=== PATIENT | male | born 1985 | race Caucasian/White ===

== ENCOUNTER → 2018-02-08 | Outpatient (CLI) | payer BC ==
[~2018-02-08] MED LIST: GADOBUTROL 10 MMOL/10 ML (GADAVIST) VIAL IV ONE
--- NOTE | 2018-02-08 10:24 | Diagnostic Imaging Report ---
PROCEDURE: MRI lumbar spine with and without contrast. TECHNIQUE: Multiplanar, multisequence MRI of the lumbar spine was performed with and without contrast. INDICATION: Low back pain with bilateral leg numbness. Patient had prior lumbar spine surgery in 2004. COMPARISON: No prior studies are available for comparison. FINDINGS: There is some straightening of the normal lumbar lordotic curvature. The vertebral body heights are well-maintained. No acute compression fracture or geographic marrow lesion is seen. There is fairly normal height and signal intensity to the lumbar intervertebral discs. Conus appears unremarkable at the T12-L1 level. There appear to be postsurgical changes at the L4-L5 level of left tristan-laminectomy. Trace fluid at the tip of the spinous process of L4 is seen. L1-L2: Central canal is widely patent. Neural foramina are patent. L2-L3: Unremarkable. L3-L4: There is some ligamentous thickening and facet changes creating slight trefoil configuration of the thecal sac. AP dimensions remain within normal limits. No neuroforaminal stenosis is seen. L4-L5: There is mild annular bulging with flattening of the ventral thecal sac. AP dimensions of the canal are within normal limits. There appears to be very mild neuroforaminal narrowing bilaterally as well as mild bilateral lateral recess narrowing. L5-S1: Central canal is widely patent. No neuroforaminal stenosis is seen. Postcontrast imaging is unremarkable. No abnormal enhancement is identified. The paraspinous tissues are unremarkable. IMPRESSION: Postsurgical changes left hemilaminectomy lower lumbar spine, as described. No complicating features are identified. There is very mild bilateral neuroforaminal and lateral recess narrowing at L4-L5 level due to annular bulging. No central canal stenosis is detected. Dictated by: Dictated on workstation # [id number]
== END ==
LOC: RAD 08:39
PROVIDERS: ATTEND Nurse Practitioner Family
DX: M48.061 Spinal stenosis, lumbar region without neurogenic claudication (principal); M51.26 Other intervertebral disc displacement, lumbar region; Z98.890 Other specified postprocedural states
CPT/HCPCS: 72158

== ENCOUNTER 2018-05-07 08:30 | Outpatient (RCR) | payer BC | END 2018-05-08 13:24 | disposition home or self-care (01) | PROVIDERS: ATTEND Nurse Practitioner Family | DX: M54.5 Low back pain (principal) ==

== ENCOUNTER 2021-05-07 21:43 | Emergency (ER) | payer SELFPAY ==
[~2021-05-07] VITALS: Ht 170.2 cm; Wt 79.4 kg
[2021-05-07 22:05] LABS: BASOPHILS % (AUTO) 0 % (0-10); EOSINOPHILS # (AUTO) 0.2 10^3/uL (0.0-0.3); EOSINOPHILS % (AUTO) 2 % (0-10); HEMATOCRIT 40 % (40-54); LYMPHOCYTES # (AUTO) 2.7 10^3/uL (1.0-4.0); LYMPHOCYTES % (AUTO) 33 % (12-44); MEAN CORPUSCULAR HEMOGLOBIN 30 pg (25-34); MEAN CORPUSCULAR HGB CONC 35 g/dL (32-36); MEAN CORPUSCULAR VOLUME 87 fL (80-99); MEAN PLATELET VOLUME 9.8 fL (9.0-12.2); MONOCYTES % (AUTO) 12 % (0-12); NEUTROPHILS # (AUTO) 4.2 10^3/uL (1.8-7.8); NEUTROPHILS % (AUTO) 52 % (42-75); PLATELET COUNT 211 10^3/uL (130-400)
--- NOTE | 2021-05-07 22:12 | ED Neurological Problem ---
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 ALSO STATES THAT HE NOTICED THE RIGHT SIDE OF HIS FACE TO FEEL TINGLY, MOSTLY WHEN HE YAWNS, SINCE AROUND 10 AM TODAY ALSO NOTED OCCASIONAL CRAMPING IN MEDIAL ASPECT OF RIGHT CALF TODAY HAS HAD A SLIGHT HEADACHE ALL DAY TODAY--IN TEMPLES AND BACK OF HEAD HAS NOT TAKEN ANYTHING FOR PAIN TODAY, BUT STATES HEAD DOES NOT HURT NOW NO VISION CHANGES NO DIFFICULTY TALKING OR SWALLOWING NO NECK OR BACK PAIN NO CHEST PAIN NO SHORTNESS OF BREATH NO PALPITATIONS NO DIZZINESS NO SYNCOPE NO NAUSEA/VOMITING/DIARRHEA NO FEVER OR RECENT ILLNESS NO URI/SINUS/ALLERGY SYMPTOMS HAS NOT RECEIVED COVID-19 VACCINE DENIES ANY KNOWN SICK CONTACTS SYMPTOMS ARE NOT ANY DIFFERENT TONIGHT HAS NOT SOUGHT CARE UNTIL TONIGHT NO HISTORY OF SIMILAR PT STATES HE WAS DX WITH HTN LAST YEAR, AND WAS PLACED ON LISINOPRIL PT STATES HE HAS NOT TAKEN IT FOR THE LAST 3 MONTHS BECAUSE HIS BLOOD PRESSURE WAS NORMAL PCP: [facility] Allergies and Home Medications Allergies Coded Allergies: No Known Drug Allergies (Unverified , 02/08/18) Home Medications Lisinopril 10 Mg Tablet, 10 MG PO DAILY Prescribed by: YESI VILLEGAS on 05/07/21 4422 Patient Home Medication List Home Medication List Reviewed: Yes Review of Systems Review of Systems Constitutional: no symptoms reported Eyes: No Symptoms Reported Ears, Nose, Mouth, Throat: no symptoms reported Respiratory: no symptoms reported Cardiovascular: no symptoms reported Gastrointestinal: no symptoms reported Genitourinary: no symptoms reported Musculoskeletal: see HPI Skin: no symptoms reported Psychiatric/Neurological: See HPI; Denies Cognitive Dysfunction; Headache, Numbness, Tingling Endocrine: No Symptoms Reported Hematologic/Lymphatic: No Symptoms Reported Past Umrjarp-Eguzoe-Elgyun Hx Patient Social History Tobacco Use?: No Smoking Status: Never a Smoker Smokeless Tobacco Frequency: Never a User Substance use?: No Alcohol Use?: Yes Alcohol Frequency: Couple times a week Pt feels they are or have been: No Immunizations Up To Date COVID19 Vaccine Toter: NO VAX Past Medical History Surgery/Hospitalization HX: SURGERY FOR HERNIATED DISK L5 Surgeries: Yes Orthopedic Respiratory: No Cardiac: Yes Hypertension Neurological: No Genitourinary: No Gastrointestinal: No Musculoskeletal: Yes (SURGERY L5 HERNIATED DISC) Degenerate Disk Disease, Chronic Back Pain Endocrine: No HEENT: No Cancer: No Psychosocial: No Integumentary: No Blood Disorders: No Physical Exam Vital Signs Vital Signs - First Documented 05/07/21 21:48 Pulse 82 Resp 16 B/P (MAP) 190/117 (141) Pulse Ox 99 O2 Delivery Room Air Capillary Refill : Height, Weight, BMI Height: '" Weight: lbs. oz. kg; BMI Method: General Appearance: WD/WN, no apparent distress HEENT: PERRL/EOMI, normal ENT inspection, TMs normal, pharynx normal Neck: non-tender, full range of motion, supple, normal inspection Respiratory: normal breath sounds, no respiratory distress, no accessory muscle use Cardiovascular: normal peripheral pulses, regular rate, rhythm, no edema, no JVD, no murmur Gastrointestinal: normal bowel sounds, non tender, soft, no organomegaly Back: normal inspection, no CVA tenderness, no vertebral tenderness Extremities: normal range of motion, non-tender, normal inspection, no pedal edema, no calf tenderness, normal capillary refill 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 HAS SENSATION BUT IT DOES NOT FEEL THE SAME OTHER THUMB. RIGHT SIDE OF FACE HAS SENSATION, BUT STATES IT DOES NOT FEEL THE SAME LEFT SIDE. NO FACIAL DROOP. ) Crainal Nerves: normal hearing, normal speech, PERRL Coordination/Gait: normal finger to nose, normal gait, negative Romberg's sign, other (NORMAL HEEL TO JASSO) Motor/Sensory: no motor deficit, no sensory deficit, no pronator drift Skin: normal color, warm/dry Stroke NIH Stroke Scale Assessment Select: Initial Level of Consciousness: 0=Alert (0), Level of Consciousness- Questions: 0=Answers both month/age (0), LOC Commands: 0=Performs both tasks (0), Gaze: Normal (0), Visual Funez: 0=No visual loss (0), Facial Movement (Facial Paresis): 0=Normal symmetrical mnt (0), Motor Function-Arms Right: 0=No drift (0), Motor Function-Arms Left: 0=No drift (0), Motor Function-Legs Right: 0=No drift (0), Motor Function-Legs Left: 0=No drift (0), Limb Ataxia: 0=Absent (0), Sensory: 1=Mild to Moderate loss (1), Best Language: 0=No aphasia (0), Dysarthria: 0=Normal (0), Extinction & Inattention: 0=No abnormality (0), Total: 1 Stroke Thrombolytic Exclusion Age 18 or Over: Yes Acute intenal hemorrhage: No History of CVA: No Uncontrolled Coagulation Defec: No Intracranial Hemorrhage: No Severe Hypertension: Yes GI or Bleed: No Subarachnoid Hemorrhage: No Intracranial Neoplasm/Aneurysm: No Oral Anticoagulants: No Surgery or Trauma: No Puncture of Non-Compressible V: No Recent CPR: No Diabetic Hemorrhagic Retinopat: No Organ Biopsy: No Recent Obstetric Delivery: No Glucose: No Significant Hepatic Dysfunctio: No NIH Stoke Scale >22: No Bacterial Endocarditis: No Pericarditis: No Improving Symptoms: No Platelets: No TPA Contraindication: No IV - TPa Received IV - TPa Procedure Performed?: No (NIH 1, ONSET > 12 HOURS) Progress/Results/Core Measures Results/Orders Lab Results Laboratory Tests Test 05/07/21 21:58 05/07/21 22:37 Range/Units White Blood Count 8.0 4.3-11.0 10^3/uL Red Blood Count 4.60 4.30-5.52 10^6/uL Hemoglobin 14.0 13.3-17.7 g/dL Hematocrit 40 40-54 % Mean Corpuscular Volume 87 80-99 fL Mean Corpuscular Hemoglobin 30 25-34 pg Mean Corpuscular Hemoglobin Concent 35 32-36 g/dL Red Cell Distribution Width 12.9 10.0-14.5 % Platelet Count 211 130-400 10^3/uL Mean Platelet Volume 9.8 9.0-12.2 fL Immature Granulocyte % (Auto) 0 % Neutrophils (%) (Auto) 52 42-75 % Lymphocytes (%) (Auto) 33 12-44 % Monocytes (%) (Auto) 12 0-12 % Eosinophils (%) (Auto) 2 0-10 % Basophils (%) (Auto) 0 0-10 % Neutrophils # (Auto) 4.2 1.8-7.8 10^3/uL Lymphocytes # (Auto) 2.7 1.0-4.0 10^3/uL Monocytes # (Auto) 1.0 0.0-1.0 10^3/uL Eosinophils # (Auto) 0.2 0.0-0.3 10^3/uL Basophils # (Auto) 0.0 0.0-0.1 10^3/uL Immature Granulocyte # (Auto) 0.0 0.0-0.1 10^3/uL Prothrombin Time 13.3 12.2-14.7 SEC INR Comment 1.0 0.8-1.4 Activated Partial Thromboplast Time 30 24-35 SEC Sodium Level 141 135-145 MMOL/L Potassium Level 3.7 3.6-5.0 MMOL/L Chloride Level 104 98-107 MMOL/L Carbon Dioxide Level 23 21-32 MMOL/L Anion Gap 14 5-14 MMOL/L Blood Urea Nitrogen 12 7-18 MG/DL Creatinine 1.06 0.60-1.30 MG/DL Estimat Glomerular Filtration Rate 79 BUN/Creatinine Ratio 11 Glucose Level 111 H 70-105 MG/DL Calcium Level 9.1 8.5-10.1 MG/DL Corrected Calcium 8.8 8.5-10.1 MG/DL Magnesium Level 2.2 1.6-2.4 MG/DL Total Bilirubin 0.3 0.1-1.0 MG/DL Aspartate Amino Transf (AST/SGOT) 20 5-34 U/L Alanine Aminotransferase (ALT/SGPT) 22 0-55 U/L Alkaline Phosphatase 86 40-136 U/L Total Creatine Kinase 246 H 30-200 U/L Creatine Kinase MB 2.8 <6.6 NG/ML Myoglobin 99.8 H 10.0-92.0 NG/ML Troponin I < 0.028 <0.028 NG/ML Total Protein 7.9 6.4-8.2 GM/DL Albumin 4.4 3.2-4.5 GM/DL Free Thyroxine 0.86 0.70-1.48 NG/DL TSH Iron Testing 5.70 H 0.35-4.94 UIU/ML Serum Alcohol < 10 <10 MG/DL Urine Color YELLOW Urine Clarity CLEAR Urine pH 5.5 5-9 Urine Specific [place] 1.015 L 1.016-1.022 Urine Protein NEGATIVE NEGATIVE Urine Glucose (UA) NEGATIVE NEGATIVE Urine Ketones NEGATIVE NEGATIVE Urine Nitrite NEGATIVE NEGATIVE Urine Bilirubin NEGATIVE NEGATIVE Urine Urobilinogen 0.2 < = 1.0 MG/DL Urine Leukocyte Esterase NEGATIVE NEGATIVE Urine RBC (Auto) NEGATIVE NEGATIVE Urine RBC NONE /HPF Urine WBC NONE /HPF Urine Crystals NONE /LPF Urine Bacteria NEGATIVE /HPF Urine Casts NONE /LPF Urine Mucus NEGATIVE /LPF Urine Culture Indicated NO Urine Opiates Screen NEGATIVE NEGATIVE Urine Oxycodone Screen NEGATIVE NEGATIVE Urine Methadone Screen NEGATIVE NEGATIVE Urine Propoxyphene Screen NEGATIVE NEGATIVE Urine Barbiturates Screen NEGATIVE NEGATIVE Ur Tricyclic Antidepressants Screen NEGATIVE NEGATIVE Urine Phencyclidine Screen NEGATIVE NEGATIVE Urine Amphetamines Screen NEGATIVE NEGATIVE Urine Methamphetamines Screen NEGATIVE NEGATIVE Urine Benzodiazepines Screen NEGATIVE NEGATIVE Urine Cocaine Screen NEGATIVE NEGATIVE Urine Cannabinoids Screen NEGATIVE NEGATIVE My Orders Orders - YESI VILLEGAS DO Ed Iv/Invasive Line Start (05/07/21 21:56) Ekg Tracing (05/07/21 21:56) Monitor-Rhythm Ecg Trace Only (05/07/21 21:56) Ct Head Wo-R/O Stroke (05/07/21 21:56) Chest 1 View, Ap/Pa Only (05/07/21 21:56) Alcohol (05/07/21 21:56) Cbc With Automated Diff (05/07/21 21:56) Comprehensive Metabolic Panel (05/07/21 21:56) Creatine Kinase (05/07/21 21:56) Creatine Kinase Mb (05/07/21 21:56) Drug Screen Stat (Urine) (05/07/21 21:56) Magnesium (05/07/21 21:56) Protime With Inr (05/07/21 21:56) Partial Thromboplastin Time (05/07/21 21:56) Thyroid Analyzer (05/07/21 21:56) Ua Culture If Indicated (05/07/21 21:56) Myoglobin Serum (05/07/21 21:56) Troponin I (05/07/21 21:56) Hydralazine Injection (Apresoline Inject (05/07/21 22:15) Ct Angio Head/Neck (05/07/21 22:33) Free T4 (Free Thyroxine) (05/07/21 21:58) Iohexol Injection (Omnipaque 350 Mg/Ml 1 (05/07/21 23:15) Received Contrast (Hold Metformin- Contr (05/07/21 23:15) Sodium Chloride Flush (Catheter Flush Sy (05/07/21 23:15) Ns (Ivpb) (Sodium Chloride 0.9% Ivpb Bag (05/07/21 23:15) Hydralazine Injection (Apresoline Inject (05/07/21 23:30) Lisinopril Tablet (Zestril Tablet) (05/07/21 23:30) Medications Given in ED Current Medications Medications Dose Ordered Sig/Cuong Route Start Time Stop Time Status Last Admin Dose Admin Hydralazine HCl 10 mg ONCE ONCE IV 05/07/21 22:15 05/07/21 22:16 DC 05/07/21 22:25 10 MG Hydralazine HCl 10 mg ONCE ONCE IV 05/07/21 23:30 05/07/21 23:31 DC 05/07/21 23:38 10 MG Iohexol 100 ml ONCE ONCE IV 05/07/21 23:15 05/07/21 23:16 DC 05/07/21 23:06 75 ML Lisinopril 10 mg ONCE ONCE PO 05/07/21 23:30 05/07/21 23:31 DC 05/07/21 23:38 10 MG Sodium Chloride 10 ml NEEDED PRN IV 05/07/21 23:15 05/07/21 23:07 10 ML Sodium Chloride 100 ml ONCE ONCE IV 05/07/21 23:15 05/07/21 23:16 DC 05/07/21 23:06 80 ML Vital Signs/I&O 05/07/21 21:48 Pulse 82 Resp 16 B/P (MAP) 190/117 (141) Pulse Ox 99 O2 Delivery Room Air Progress Progress Note : Progress Note GIVEN HYDRALAZINE 10 MG X 2 DOSES GIVEN LISINOPRIL 10 MG PO BP DOWN TO 160/99, AND PT IS VERY ANXIOUS TO GO HOME NO DETERIORATION IN PT'S CONDITION DURING ER STAY Initial ECG Impression Date: May 07, 2021 Initial ECG Impression Time: 21:56 Initial ECG Rate: 73 Initial ECG Rhythm: Normal Sinus Initial ECG Comparisson: No Previous ECG Available Diagnostic Imaging Comments CXR--NO ACUTE PROCESS, PER RADIOLOGIST REPORT AT 2309 CT HEAD--PER RADIOLOGIST REPORT AT [address] ANGIOGRAM HEAD/NECK Reviewed: Reviewed by Me Departure Impression Primary Impression: Hypertensive urgency Additional Impression: RIGHT FACIAL PARESTHESIAS Disposition: HOME, SELF-CARE Condition: Improved Departure-Patient Inst. Decision time for Depature: 23:30 Referrals: CARINE RAHMAN APRN (PCP) Primary Care Physician [facility] (Family) Primary Care Physician Patient Instructions: High Blood Pressure (DC), DASH Diet, Paresthesia (DC) Add. Discharge Instructions: TAKE 81 MG ASPIRIN DAILY FOLLOW UP WITH [facility] IN 2-3 DAYS FOR FURTHER CARE, RETURN TO ER IF SYMPTOMS WORSEN All discharge instructions reviewed with patient and/or family. Voiced understanding. Scripts Lisinopril (Lisinopril) 10 Mg Tablet 10 MG PO DAILY, #30 TAB Prov: YESI VILLEGAS DO 05/07/21 YESI VILLEGAS DO May 07, 2021 22:12
[2021-05-07 22:15] LABS: ALBUMIN 4.4 GM/DL (3.2-4.5); CHLORIDE 104 MMOL/L (98-107); POTASSIUM 3.7 MMOL/L (3.6-5.0); SODIUM 141 MMOL/L (135-145)
[2021-05-07] MEDS ORDERED: hydrALAZINE (APESOLINE) 20 MG/ML VIAL IV ONE ×2 (22:15→23:30)
[2021-05-07 22:16] LABS: CALCIUM 9.1 MG/DL (8.5-10.1)
[2021-05-07 22:17] LABS: GLUCOSE 111 MG/DL (70-105); PROTHROMBIN TIME PATIENT 13.3 SEC (12.2-14.7); TOTAL PROTEIN 7.9 GM/DL (6.4-8.2)
[2021-05-07 22:18] LABS: CARBON DIOXIDE 23 MMOL/L (21-32)
[2021-05-07 22:19] LABS: BILIRUBIN,TOTAL 0.3 MG/DL (0.1-1.0)
[2021-05-07 22:21] LABS: ALKALINE PHOSPHATASE 86 U/L (40-136); CREATININE SERUM 1.06 MG/DL (0.60-1.30); GFR ESTIMATED 79
[2021-05-07 22:22] LABS: BUN/CREATININE RATIO 11
[2021-05-07 22:24] LABS: ALANINE AMINOTRANSFERASE 22 U/L (0-55); CREATINE KINASE 246 U/L (30-200); MAGNESIUM 2.2 MG/DL (1.6-2.4)
--- NOTE | 2021-05-07 22:29 | Diagnostic Imaging Report ---
INDICATION: Right thumb numbness and headache. EXAMINATION: Noncontrast brain CT was performed. COMPARISON: There is no previous study for comparison. TECHNIQUE: Multiple contiguous axial images were obtained through the brain without the use of intravenous contrast. Auto Exposure Controls were utilized during the CT exam to meet ALARA standards for radiation dose reduction. FINDINGS: There is no extra-axial fluid collection. No intracranial hemorrhage. No intracranial mass or mass effect. No midline shift. Ventricles are normal in size and position. There is no focal parenchymal abnormality in the brain. Calvarial windows are unremarkable. Orbital contents are normal. There is some mucosal thickening in the maxillary sinuses. IMPRESSION: No acute intracranial abnormality. Dictated by: Dictated on workstation # [id number]
[2021-05-07 22:31] LABS: CREATINE KINASE MB 2.8 NG/ML (<6.6)
[2021-05-07 22:45] LABS: BILIRUBIN,URINE NEGATIVE (NEGATIVE); CLARITY,URINE CLEAR; COLOR,URINE YELLOW; GLUCOSE, URINE (UA) NEGATIVE (NEGATIVE); KETONES,URINE NEGATIVE (NEGATIVE); LEUKOCYTE ESTERASE ,URINE NEGATIVE (NEGATIVE); NITRITE,URINE NEGATIVE (NEGATIVE); PH,URINE 5.5 (5-9); PROTEIN,URINE NEGATIVE (NEGATIVE)
--- NOTE | 2021-05-07 22:55 | Diagnostic Imaging Report ---
INDICATION: Paresthesias and hypertension. EXAMINATION: Frontal chest was obtained at 10:13 p.m. FINDINGS: Heart and mediastinal silhouette are normal in appearance. The lungs are clear. There is no pneumothorax or pleural fluid. IMPRESSION: Negative chest. Dictated by: Dictated on workstation # [id number]
[2021-05-07 23:00] LABS: AMPHETAMINE SCREEN, URINE NEGATIVE (NEGATIVE); BARBITURATE SCREEN URINE NEGATIVE (NEGATIVE); BENZODIAZEPINES SCREEN URINE NEGATIVE (NEGATIVE); CANNABINOID SCREEN, URINE NEGATIVE (NEGATIVE); COCAINE SCREEN URINE NEGATIVE (NEGATIVE); METHADONE STAT NEGATIVE (NEGATIVE); METHAMPHETAMINE SCREEN URINE S NEGATIVE (NEGATIVE); OPIATE SCREEN URINE NEGATIVE (NEGATIVE); OXYCODONE STAT NEGATIVE (NEGATIVE); PROPOXYPHENE STAT NEGATIVE (NEGATIVE); TRICYCLIC ANTIDEPRESSANTS SCRE NEGATIVE (NEGATIVE)
[2021-05-07 23:05] LABS: BACTERIA,URINE NEGATIVE /HPF
--- NOTE | 2021-05-07 23:12 | Diagnostic Imaging Report ---
INDICATION: Right facial paresthesias and numbness in right upper extremity. TECHNIQUE: Contiguous noncontrast images were obtained from the skull base through the vertex. After intravenous contrast administration, helical CT angiography of the neck was performed. Source data was reformatted into 3D MIP projections. Delayed post contrast acquisition was also obtained. Auto Exposure Controls were utilized during the CT exam to meet ALARA standards for radiation dose reduction. COMPARISON: Noncontrast CT of earlier the same day. CTA neck findings: The aortic arch and great vessel origins are patent and without stenosis. The common carotid arteries, carotid bifurcations, internal carotid arteries and external carotids are patent and without stenosis. The vertebral arteries, bilaterally, are patent with the left being dominant. There is no vertebral stenosis or dissection. CTA head findings: The distal vertebral arteries, basilar artery and posterior cerebral arteries are patent. The distal internal carotid arteries, anterior cerebral arteries and middle cerebral arteries on both sides are patent. There is no major vessel stenosis, occlusion or aneurysmal disease. The dural venous sinuses appear patent. IMPRESSION: Negative CTA of the head and neck. Dictated by: Dictated on workstation # [id number]
[2021-05-07] MEDS ORDERED: NS 100 ML (IVPB) BAG IV ONE (23:15)
[2021-05-07] MEDS ORDERED: CATHETER FLUSH 10 ML SYR IV PRN (23:15)
[2021-05-07] MEDS ORDERED: HOLD METFORMIN - RECEIVED CONTRAST 20 ML VIAL IV SCH (23:15)
[2021-05-07] MEDS ORDERED: IOHEXOL 350 MG/ML 100 ML (OMNIPAQUE 350) VIAL IV ONE (23:15)
[2021-05-07] MEDS ORDERED: lisINopril 10 MG (PRINIVIL) TABLET PO ONE (23:30)
[2021-05-07] MEDS ORDERED: LISI10TA25 PO (23:32)
[2021-05-07 23:48] LABS: FREE T4 (FREE THYROXINE) 0.86 NG/DL (0.70-1.48)
[2021-05-08 00:11] VITALS: BP 160/103
== END 2021-05-08 00:12 | disposition home or self-care (01) ==
LOC: EDUNIT# 21:43 → ER 21:45
DX: I10 Essential (primary) hypertension (principal); R20.2 Paresthesia of skin
CPT/HCPCS: 70450; 70496; 70498; 71045; 80053; 80306; 81000; 82550; 82553; 83735; 83874; 84439; 84443; 84484; 85025; 85610; 85730; 93005; 93041; 99284; G0480; 36415; 80320

== ENCOUNTER 2021-05-16 13:05 | Emergency (ER) | payer SELFPAY ==
[~2021-05-16] VITALS: Ht 170.2 cm; Wt 80.3 kg
[~2021-05-16 13:05] MED LIST changes: -GADOBUTROL 10 MMOL/10 ML (GADAVIST) VIAL IV ONE; +LISI10TA25 PO
[2021-05-16 14:21] LABS: BASOPHILS % (AUTO) 0 % (0-10); EOSINOPHILS # (AUTO) 0.1 10^3/uL (0.0-0.3); EOSINOPHILS % (AUTO) 1 % (0-10); HEMATOCRIT 45 % (40-54); HEMOGLOBIN 15.7 g/dL (13.3-17.7); LYMPHOCYTES # (AUTO) 2.4 10^3/uL (1.0-4.0); LYMPHOCYTES % (AUTO) 20 % (12-44); MEAN CORPUSCULAR HEMOGLOBIN 30 pg (25-34); MEAN CORPUSCULAR HGB CONC 35 g/dL (32-36); MEAN CORPUSCULAR VOLUME 87 fL (80-99); MEAN PLATELET VOLUME 9.9 fL (9.0-12.2); MONOCYTES # (AUTO) 1.3 10^3/uL (0.0-1.0); MONOCYTES % (AUTO) 11 % (0-12); NEUTROPHILS # (AUTO) 7.9 10^3/uL (1.8-7.8); NEUTROPHILS % (AUTO) 66 % (42-75); PLATELET COUNT 192 10^3/uL (130-400); WHITE BLOOD COUNT 11.9 10^3/uL (4.3-11.0)
[2021-05-16 14:26] LABS: ALBUMIN 4.3 GM/DL (3.2-4.5); POTASSIUM 3.6 MMOL/L (3.6-5.0)
[2021-05-16 14:28] LABS: CALCIUM 9.2 MG/DL (8.5-10.1)
[2021-05-16 14:29] LABS: TOTAL PROTEIN 8.1 GM/DL (6.4-8.2)
[2021-05-16 14:31] LABS: BILIRUBIN,TOTAL 0.3 MG/DL (0.1-1.0)
[2021-05-16 14:33] LABS: CREATININE SERUM 0.98 MG/DL (0.60-1.30)
[2021-05-16 14:55] LABS: TSH (THYROID ANALYZER) 2.31 UIU/ML (0.35-4.94)
[2021-05-16] MEDS ORDERED: GADOBUTROL 7.5 MMOL/7.5 ML (GADAVIST) VIAL IV ONE (15:15)
--- NOTE | 2021-05-16 15:42 | Diagnostic Imaging Report ---
PROCEDURE: MR imaging of the brain with and without contrast. TECHNIQUE: Multiplanar, multisequence MR imaging of the brain was performed with and without contrast. INDICATION: Transient bilateral weakness. Numbness in extremities. COMPARISON: CTA head and neck 05/07/2021. FINDINGS: No abnormal intracranial signal or enhancement. No restricted water diffusion. No hemosiderin deposition or evidence of intracranial hemorrhage. Normal morphology including the major midline structures, sella, posterior fossa and cerebellar pontine angle. The orbits are negative. Normal intracranial flow voids. No hydrocephalus or extra-axial fluid collections. Mild mucosal thickening in the maxillary sinuses. The mastoids are clear. Normal bone marrow signal. IMPRESSION: 1. Normal MRI of the brain without and with IV contrast. No acute findings. 2. Mild mucosal thickening in the maxillary sinuses. Dictated by: Dictated on workstation # [id number]
--- NOTE | 2021-05-16 18:50 | ED Neurological Problem ---
General Chief Complaint: Neurological Problems Stated Complaint: LEG WEAKNESS;FACIAL/FINGER NUMBNESS Nursing Triage Note: AMBULATES TO ROOM #2 W/CO BILAT FACIAL NUMBNESS, GENERALIZED WEAKNESS, AND PINS AND NEEDLES SENSATION TO BILAT HANDS AND FEET. PT REPORTS ON 05/09/21 HE WAS DX WITH BELLS PALSY BY HIS PCP, DR. FOUNTAIN D/T SX INCLUDING FACIAL NUMBNESS AND THROAT DISCOMFORT. PT PINS AND NEEDLE SENSATION TO BILAT HANDS AND FEET DEVELOPED UPON RISE ON 05/13/21 AND HAS BEEN CONSTANT SINCE ONSET. PT REPORTS INTERMITTENT EPISODES OF WATERY EYES. Source: patient, old records Exam Limitations: no limitations (LUIS ALBERTO MARINELLI MD) History of Present Illness Date Seen by Provider: May 16, 2021 Time Seen by Provider: 13:16 Initial Comments This 35-year-old gentleman presents to the emergency room at the direction of Dr. Fountain's office due to some progressive neurologic problems and hypertension. He was seen in the emergency room on May 07 due to right face paresthesias, upper extremity and facial paresthesias and left upper extremity weakness. His very first symptom was discomfort and paresthesia in the right thumb about a week prior to his first ER visit. A thorough stroke work-up was negative May 07. Patient has had persistent and somewhat progressive symptoms since then. He has had bilateral and sometimes alternating paresthesias of the upper extremities. He has experienced significant facial weakness as well. The facial weakness was at its worst yesterday when he was unable to raise his eyebrows at all and unable to smile. He also has at times felt like he was going to choke when swallowing. Today he complains of right leg weakness and cramping. The lower extremity weakness was not evident on exam. He does seem to have weak eyelids with fasciculations of the lower eyelids. He complains of eye irritation, presumably because he is not blinking or closing his eyes completely. He denies any bowel or bladder dysfunction. He reports tongue feels numb. He reports weakness seems to worsen with activity. An outpatient follow-up he was started on lisinopril for his hypertension. It was thought this was causing throat swelling so he stopped. He is now on 2 alternative medication, metoprolol and amlodipine. He denies any symptoms of recent acute infectious illness such as fever, cough, diarrhea, vomiting, rashes, etc. He has not had any recent vaccinations. No shortness of breath or chest pain. No significant headache. (LUIS ALBERTO MARINELLI MD) Allergies and Home Medications Allergies Coded Allergies: No Known Drug Allergies (Unverified , 02/08/18) Home Medications Amlodipine Besylate 10 Mg Tablet, 10 MG PO DAILY Prescribed by: GWYN ABAD on 05/16/212046 Lisinopril 10 Mg Tablet, 10 MG PO DAILY Prescribed by: YESI VILLEGAS on 05/07/21 2332 Patient Home Medication List Home Medication List Reviewed: Yes (GWYN ABAD MD) Review of Systems Review of Systems Constitutional: No fever; weakness Eyes: See HPI Ears, Nose, Mouth, Throat: no symptoms reported Respiratory: no symptoms reported Cardiovascular: no symptoms reported Gastrointestinal: no symptoms reported Genitourinary: no symptoms reported Musculoskeletal: see HPI Skin: no symptoms reported Psychiatric/Neurological: See HPI Endocrine: No Symptoms Reported Hematologic/Lymphatic: No Symptoms Reported (LUIS ALBERTO MARINELLI MD) Past Xnjrgvd-Yeuewx-Eemfpw Hx Patient Social History Tobacco Use?: No Substance use?: No Alcohol Use?: Yes Alcohol Frequency: Couple times a week Pt feels they are or have been: No (LUIS ALBERTO MARINELLI MD) Immunizations Up To Date First/Initial COVID19 Vaccinat: NONE (LUIS ALBERTO MARINELLI MD) Past Medical History Surgery/Hospitalization HX: SURGERY FOR HERNIATED DISK L5 Surgeries: Yes Orthopedic Respiratory: No Cardiac: Yes Hypertension Neurological: No Genitourinary: No Gastrointestinal: No Musculoskeletal: Yes (SURGERY L5 HERNIATED DISC) Degenerate Disk Disease, Chronic Back Pain Endocrine: No HEENT: No Cancer: No Psychosocial: No Integumentary: No Blood Disorders: No (LUIS ALBERTO MARINELLI MD) Physical Exam Vital Signs Vital Signs - First Documented 05/16/21 13:05 Temp 35.9 Pulse 78 Resp 18 B/P (MAP) 174/122 (139) Pulse Ox 96 O2 Delivery Room Air (GWYN ABAD MD) Vital Signs Capillary Refill : Less Than 3 Seconds (LUIS ALBERTO MARINELLI MD) Height, Weight, BMI Height: '" Weight: lbs. oz. kg; 27.00 BMI Method: General Appearance: WD/WN, no apparent distress HEENT: PERRL/EOMI, pharynx normal, other (Increased tearing) Neck: normal inspection Respiratory: lungs clear, normal breath sounds, no respiratory distress, no accessory muscle use Cardiovascular: regular rate, rhythm, no edema, no murmur Gastrointestinal: normal bowel sounds, non tender, soft Extremities: normal inspection, no pedal edema Neurologic/Psychiatric: alert, normal mood/affect, oriented x 3 Crainal Nerves: normal hearing, abnormal speech (Slight dysarthria from weak facial muscles), facial paresthesias, facial weakness (Bilateral) Coordination/Gait: normal finger to nose Motor/Sensory: no motor deficit Skin: normal color, warm/dry (LUIS ALBERTO MARINELLI MD) Stroke NIH Stroke Scale Assessment Gaze: Normal (0), Total: Stroke Thrombolytic Exclusion Age 18 or Over: Yes Acute intenal hemorrhage: No History of CVA: No Uncontrolled Coagulation Defec: No Intracranial Hemorrhage: No Severe Hypertension: Yes GI or Bleed: No Subarachnoid Hemorrhage: No Intracranial Neoplasm/Aneurysm: No Oral Anticoagulants: No Surgery or Trauma: No Puncture of Non-Compressible V: No Recent CPR: No Diabetic Hemorrhagic Retinopat: No Organ Biopsy: No Recent Obstetric Delivery: No Glucose: No Significant Hepatic Dysfunctio: No NIH Stoke Scale >22: No Bacterial Endocarditis: No Pericarditis: No Improving Symptoms: No Platelets: No (LUIS ALBERTO MARINELLI MD) Procedures/Interventions Discussed Risk,Benefits: Yes Patient Consents: Yes Position: Lying, L3-4, Left Sterile Technique: Yes Fluid Color: clear and colorless Size of Disposal Tray Used: Adult (GWYN ABAD MD) Progress/Results/Core Measures Results/Orders Lab Results Laboratory Tests Test 05/16/21 13:13 05/16/21 13:15 05/16/21 18:15 05/16/21 20:11 Range/Units White Blood Count 11.9 H 4.3-11.0 10^3/uL Red Blood Count 5.20 4.30-5.52 10^6/uL Hemoglobin 15.7 13.3-17.7 g/dL Hematocrit 45 40-54 % Mean Corpuscular Volume 87 80-99 fL Mean Corpuscular Hemoglobin 30 25-34 pg Mean Corpuscular Hemoglobin Concent 35 32-36 g/dL Red Cell Distribution Width 13.4 10.0-14.5 % Platelet Count 192 130-400 10^3/uL Mean Platelet Volume 9.9 9.0-12.2 fL Immature Granulocyte % (Auto) 2 % Neutrophils (%) (Auto) 66 42-75 % Lymphocytes (%) (Auto) 20 12-44 % Monocytes (%) (Auto) 11 0-12 % Eosinophils (%) (Auto) 1 0-10 % Basophils (%) (Auto) 0 0-10 % Neutrophils # (Auto) 7.9 H 1.8-7.8 10^3/uL Lymphocytes # (Auto) 2.4 1.0-4.0 10^3/uL Monocytes # (Auto) 1.3 H 0.0-1.0 10^3/uL Eosinophils # (Auto) 0.1 0.0-0.3 10^3/uL Basophils # (Auto) 0.0 0.0-0.1 10^3/uL Immature Granulocyte # (Auto) 0.2 H 0.0-0.1 10^3/uL Erythrocyte Sedimentation Rate 2 0-15 MM/HR Sodium Level 140 135-145 MMOL/L Potassium Level 3.6 3.6-5.0 MMOL/L Chloride Level 103 98-107 MMOL/L Carbon Dioxide Level 25 21-32 MMOL/L Anion Gap 12 5-14 MMOL/L Blood Urea Nitrogen 16 7-18 MG/DL Creatinine 0.98 0.60-1.30 MG/DL Estimat Glomerular Filtration Rate 86 BUN/Creatinine Ratio 16 Glucose Level 119 H 70-105 MG/DL Mean Blood Glucose 103 <=126 mg/dL Hemoglobin A1c 5.2 4.0-5.6 % Calcium Level 9.2 8.5-10.1 MG/DL Corrected Calcium 9.0 8.5-10.1 MG/DL Total Bilirubin 0.3 0.1-1.0 MG/DL Aspartate Amino Transf (AST/SGOT) 24 5-34 U/L Alanine Aminotransferase (ALT/SGPT) 40 0-55 U/L Alkaline Phosphatase 74 40-136 U/L Total Creatine Kinase 239 H 30-200 U/L Myoglobin 144.9 H 10.0-92.0 NG/ML C-Reactive Protein High Sensitivity 0.01 0.00-0.50 MG/DL Total Protein 8.1 6.4-8.2 GM/DL Total Protein (PEP) 7.8 6.6-8.2 g/dL Albumin 4.3 3.2-4.5 GM/DL Vitamin B12 Level 259 083-2420 pg/mL TSH [place] Testing 2.31 0.35-4.94 UIU/ML Troponin I < 0.028 <0.028 NG/ML Influenza Type A (RT-PCR) Not Detected Not Detecte Influenza Type B (RT-PCR) Not Detected Not Detecte SARS-CoV-2 RNA (RT-PCR) Not Detected Not Detecte CSF Tube Number 4 CSF Appearance CLEAR CSF Color COLORLESS CSF WBC 1 0-5 CELLS CSF RBC 1 H 0-0 CELLS CSF Lymphocytes % CSF Mononuclear WBCs % CSF Polynuclear WBCs % CSF Glucose 58 50-80 MG/DL CSF Total Protein 134 H 15-40 MG/DL (GWYN ABAD MD) Micro Results Microbiology 05/16/21 Gram Stain - Final, Resulted 05/16/21 CSF Culture - Preliminary, Resulted No growth (GWYN ABAD MD) My Orders Orders - GWYN ABAD MD Morphine Injection (Morphine Injection (05/16/21 19:53) (GWYN ABAD MD) Medications Given in ED (GWYN ABAD MD) Vital Signs/I&O 05/16/21 05/16/21 13:05 20:58 Temp 35.9 36.9 Pulse 78 72 Resp 18 18 B/P (MAP) 174/122 (139) 155/111 (139) Pulse Ox 96 97 O2 Delivery Room Air Room Air (GWYN ABAD MD) Blood Pressure Mean: 139 Progress Progress Note #1: Progress Note Documentation and study results from prior visit were reviewed. Patient was noted to have bilateral facial weakness that was evident on exam. The case was reviewed with neurologist on-call at [place]. He recommended transfer to an academic Medical Center that could perform inpatient EMG studies. Given the current pandemic and severe lack of bed availability at tertiary care institutions in the region, transfer was not considered a realistic possibility. [facility] and [facility] specifically declined transfer. The hospitalist also had tried extensively to transfer a neurologic case to regional tertiary care centers just prior to this patient's work-up. It was discovered through coordination with the [facility] service that there were absolutely no facilities available with the appropriate neurologic services within a reasonable distance. As an alternative I discussed the situation with Dr. Pena, neurologist at [facility]. He recommended further studies be obtained in the emergency department in preparation for outpatient consultation in the neurology clinic at [facility] next week. Since symptoms have been present for approximately 2 weeks and have not become critical, there is reasonable confidence that the pa tient will remain stable until his follow-up appointment. Studies that were added at Dr. Pena's recommendation included CSF studies from LP, myasthenia gravis antibody tests, vitamin B12, A1c, and protein electrophoresis. Dr. Abad performed to the lumbar puncture. See discharge instructions for more information. Dr. Pena also recommended stopping prednisone and not initiating any other medications until the consultation. His hypertension was addressed by increasing his amlodipine dose to 10 mg from 5 mg. Progress Note #2: Progress Note 05/17/21 - I contacted the patient to check on his status. He reports worsening numbness in his hand and lower extremities. Facial weakness and numbness has improved. He has not yet heard from [facility] and plans to call them in the morning. I reminded him to refrain from using the prednisone. Patient inquired about st udy results. Pending studies may still take a few days. He plans to call on Sunday to review results. (LUIS ALBERTO MARINELLI MD) Initial ECG Impression Date: May 16, 2021 Initial ECG Impression Time: 13:15 Initial ECG Rate: 74 Initial ECG Rhythm: Normal Sinus Comment Sinus rhythm with no diagnostic ST changes. No abnormal intervals or axis deviation. (LUIS ALBERTO MARINELLI MD) Diagnostic Imaging Diagonstic Imaging: MRI Plain Films/CT/US/NM/MRI: head Comments NAME: HELENE VASQUEZ [facility] REC#: [id number] PT STATUS: REG ER : 1985 PHYSICIAN: LUIS ALBERTO MARINELLI MD ADMIT DATE: 05/16/21/ER Signed Date of Exam:05/16/21 MRI BRAIN W/WO CONTRAST PROCEDURE: MR imaging of the brain with and without contrast. TECHNIQUE: Multiplanar, multisequence MR imaging of the brain was performed with and without contrast. INDICATION: Transient bilateral weakness. Numbness in extremities. COMPARISON: CTA head and neck 05/07/2021. FINDINGS: No abnormal intracranial signal or enhancement. No restricted water diffusion. No hemosiderin deposition or evidence of intracranial hemorrhage. Normal morphology including the major midline structures, sella, posterior fossa and cerebellar pontine angle. The orbits are negative. Normal intracranial flow voids. No hydrocephalus or extra-axial fluid collections. Mild mucosal thickening in the maxillary sinuses. The mastoids are clear. Normal bone marrow signal. IMPRESSION: 1. Normal MRI of the brain without and with IV contrast. No acute findings. 2. Mild mucosal thickening in the maxillary sinuses. Dictated by: Dictated on workstation # [id number] Dict: 05/16/21 1533 Trans: 05/16/21 1702 [facility] [id number] Interpreted by: KATALINA MARTINEZ MD Electronically signed by: KATALINA MARTINEZ MD 05/16/211701 (LUIS ALBEROT MARINELLI MD) Departure Impression Primary Impression: Facial weakness Additional Impressions: Lower extremity weakness Qualified Codes: R29.898 - Other symptoms and signs involving the musculoskeletal system Paresthesia Disposition: 01 HOME, SELF-CARE Condition: Stable Departure-Patient Inst. Decision time for Depature: 20:44 (GWYN ABAD MD) Referrals: [facility] (PCP) Primary Care Physician CARINE RAHMAN APRN (Family) Primary Care Physician Patient Instructions: Weakness ED Add. Discharge Instructions: Please continue to monitor your symptoms. If you develop any shortness of breath, difficulty breathing or swallowing or worsening weakness please come back to the emergency department for reevaluation. We have contacted neurology, Dr. Pena about your symptoms and he will see you next Sunday in follow-up. They should call you tomorrow to schedule that appointment. If you do not hear from them by tomorrow the phone number for follow-up is [phone] please call to schedule an appointment for next Sunday. Drink plenty of fluids to stay well-hydrated. We would like for you to increase your amlodipine blood pressure medicine from 5 mg to 10 mg daily. A prescription has been sent to your pharmacy. Come back to the emergency room for any other new concerning or emergent complaints. Scripts Amlodipine Besylate (Amlodipine Besylate) 10 Mg Tablet 10 MG PO DAILY, #30 TAB Prov: GWYN ABAD MD 05/16/21 Copy Copies To 1: ERIKA FOUNTAIN JOSHUA T MD May 16, 2021 18:50 GWYN ABAD MD May 16, 2021 20:48
[2021-05-16] MEDS ORDERED: morphine INJ 10 MG/ML 1ML (SYR OR VIAL) IVP STA (19:53)
[2021-05-16 20:46] LABS: CSF GLUCOSE 58 MG/DL (50-80); CSF TOTAL PROTEIN 134 MG/DL (15-40)
[2021-05-16] MEDS ORDERED: AMLO-251 PO (20:47)
[2021-05-16 20:58] VITALS: BP 155/111
[2021-05-16 21:01] LABS: APPEARANCE,CSF CLEAR
[2021-05-16 21:02] LABS: COLOR,CSF COLORLESS; CSF TUBE NUMBER 4; RED BLOOD CELL,CSF 1 CELLS (0-0); WHITE BLOOD CELL,CSF 1 CELLS (0-5)
== END 2021-05-16 20:58 | disposition home or self-care (01) ==
LOC: EDUNIT# 13:05 → ER 13:07
DX: R53.1 Weakness (principal); R20.2 Paresthesia of skin; I10 Essential (primary) hypertension; Z20.822 Contact with and (suspected) exposure to COVID-19; Z79.899 Other long term (current) drug therapy
CPT/HCPCS: 36415; 70553; 80053; 82550; 82607; 82945; 83036; 83519; 83874; 84155; 84157; 84165; 84443; 84484; 85025; 85652; 86141; 87070; 87205; 87636; 89051; 93005

== ENCOUNTER 2022-06-12 15:33 | Emergency (ER) | payer OTHER ==
[~2022-06-12 15:33] MED LIST changes: +AMLO-251 PO
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
[2022-06-12] MEDS ORDERED: TETANUS,DIPTH,PERTUSS P/F (BOOSTRIX) 0.5 ML VIAL IM ONE (16:00)
[2022-06-12] MEDS ORDERED: NS IV 1000 ML 1,000 ML IV SCH ×2 (16:00→17:00)
[2022-06-12 16:04] LABS: BASOPHILS % (AUTO) 0 % (0-10); EOSINOPHILS # (AUTO) 0.1 10^3/uL (0.0-0.3); EOSINOPHILS % (AUTO) 1 % (0-10); HEMATOCRIT 41 % (40-54); HEMOGLOBIN 14.6 g/dL (13.3-17.7); LYMPHOCYTES # (AUTO) 1.3 10^3/uL (1.0-4.0); LYMPHOCYTES % (AUTO) 15 % (12-44); MEAN CORPUSCULAR HEMOGLOBIN 31 pg (25-34); MEAN CORPUSCULAR HGB CONC 36 g/dL (32-36); MEAN CORPUSCULAR VOLUME 86 fL (80-99); MEAN PLATELET VOLUME 9.5 fL (9.0-12.2); MONOCYTES # (AUTO) 0.7 10^3/uL (0.0-1.0); MONOCYTES % (AUTO) 8 % (0-12); NEUTROPHILS # (AUTO) 6.8 10^3/uL (1.8-7.8); NEUTROPHILS % (AUTO) 76 % (42-75); PLATELET COUNT 201 10^3/uL (130-400); WHITE BLOOD COUNT 8.9 10^3/uL (4.3-11.0)
[2022-06-12 16:14] LABS: ALBUMIN 4.4 GM/DL (3.2-4.5)
[2022-06-12 16:15] LABS: POTASSIUM 3.9 MMOL/L (3.6-5.0)
[2022-06-12 16:16] LABS: CALCIUM 9.1 MG/DL (8.5-10.1)
[2022-06-12 16:17] LABS: TOTAL PROTEIN 7.5 GM/DL (6.4-8.2)
[2022-06-12 16:19] LABS: BILIRUBIN,TOTAL 0.3 MG/DL (0.1-1.0)
[2022-06-12 16:21] LABS: CREATININE SERUM 1.05 MG/DL (0.60-1.30)
[2022-06-12 16:38] LABS: BILIRUBIN,URINE NEGATIVE (NEGATIVE); CLARITY,URINE CLEAR; COLOR,URINE YELLOW; GLUCOSE, URINE (UA) NEGATIVE (NEGATIVE); KETONES,URINE NEGATIVE (NEGATIVE); LEUKOCYTE ESTERASE ,URINE NEGATIVE (NEGATIVE); NITRITE,URINE NEGATIVE (NEGATIVE); PROTEIN,URINE NEGATIVE (NEGATIVE)
[2022-06-12 16:49] LABS: BACTERIA,URINE NEGATIVE /HPF
[2022-06-12 17:35] VITALS: BP 152/106
== END 2022-06-12 17:37 | disposition home or self-care (01) ==
LOC: EDUNIT# 15:33 → ER 15:35
DX: T75.4XXA Electrocution, initial encounter (principal); S50.812A Abrasion of left forearm, initial encounter; R74.8 Abnormal levels of other serum enzymes; Z23 Encounter for immunization; Z28.310 Unvaccinated for COVID-19; W86.8XXA Exposure to other electric current, initial encounter
CPT/HCPCS: 36415; 80053; 81000; 82550; 85025; 90715; 93005

== ENCOUNTER 2022-08-30 11:07 | Emergency (ER) | payer OTHER ==
[~2022-08-30] VITALS: Ht 170 cm; Wt 81.6 kg
--- NOTE | 2022-08-30 13:09 | ED Cough/URI ---
General Chief Complaint: Cough/Cold/Flu Symptoms Stated Complaint: CONGESTION | HEADACHE | CHILLS Nursing Triage Note: PT AMB TO ED BY POV WITH C/O COUGH, CONGESTION, GRANADOS, WEAKNESS, FEVER. PT HAD CONGESTION AND GRANADOS X 10 DAYS, PRODUCTIVE COUGH, FEVER AND CHILLS X 2 DAYS. PT HAS HAD DECREASED APPETITE, BUT HAS TRIED TO STAY HYDRATED. NO TYLENOL OR IBUPROFEN TODAY. Source: patient Exam Limitations: no limitations History of Present Illness Date Seen by Provider: Aug 30, 2022 Time Seen by Provider: 13:07 Initial Comments This is a 37-year-old male who presented to the ER with complaints of cough, congestion, headache, fever for the past week. Has been trying Tylenol with no relief of symptoms, has not tried ibuprofen. States that his son is also sick as well. He is taking herbal teas and trying to stay hydrated hydrated. Allergies and Home Medications Allergies Coded Allergies: No Known Drug Allergies (Unverified , 02/08/18) Patient Home Medication List Amlodipine Besylate (Amlodipine Besylate) 10 Mg Tablet, 10 MG PO DAILY Prescribed by: GWYN ABAD on 05/16/212046 Lisinopril (Lisinopril) 10 Mg Tablet, 10 MG PO DAILY Prescribed by: YESI VILLEGAS on 05/07/21 2332 Past Kfxmzit-Hiyzjx-Hgyeht Hx Patient Social History Tobacco Use?: No Use of E-Cig and/or Vaping dev: No Substance use?: No Alcohol Use?: Yes Alcohol type: Beer Alcohol Frequency: Couple times a week Pt feels they are or have been: No Immunizations Up To Date Influenza Vaccine Up-to-Date: No; Not Current First/Initial COVID19 Vaccinat: NONE Second COVID19 Vaccination Bud: NONE Third COVID19 Vaccination Date: NONE Past Medical History Surgery/Hospitalization HX: HTN Surgeries: Yes Orthopedic Respiratory: No Cardiac: Yes Hypertension Neurological: No Genitourinary: No Gastrointestinal: No Musculoskeletal: Yes (SURGERY L5 HERNIATED DISC) Degenerate Disk Disease, Chronic Back Pain Endocrine: No HEENT: No Cancer: No Psychosocial: No Integumentary: No Blood Disorders: No Family Medical History No Pertinent Family Hx Physical Exam Vital Signs - First Documented 08/30/22 11:50 Temp 39.5 Pulse 100 Resp 16 B/P (MAP) 119/76 (90) Pulse Ox 96 O2 Delivery Room Air Capillary Refill : Less Than 3 Seconds Height: '" Weight: lbs. oz. kg; 28.00 BMI Method: Progress/Results/Core Measures Suspected Sepsis SIRS Temperature: Pulse: 100 Respiratory Rate: 16 Blood Pressure 119 /76 Mean: 90 Results/Orders Lab Results Laboratory Tests Test 08/30/22 11:55 Range/Units Influenza Type A (RT-PCR) Detected H Not Detecte Influenza Type B (RT-PCR) Not Detected Not Detecte SARS-CoV-2 RNA (RT-PCR) Not Detected Not Detecte My Orders Orders - GAYATHRI ARIZA APRN Covid 19 Inhouse Test (08/30/22 11:25) Influenza A And B By Pcr (08/30/22 11:25) Ketorolac Injection (Toradol Injection) (08/30/22 13:15) Vital Signs/I&O 08/30/22 11:50 Temp 39.5 Pulse 100 Resp 16 B/P (MAP) 119/76 (90) Pulse Ox 96 O2 Delivery Room Air Capillary Refill : Less Than 3 Seconds Blood Pressure Mean: 90 Departure Impression Primary Impression: Influenza Disposition: 01 HOME, SELF-CARE Condition: Improved Departure-Patient Inst. Decision time for Depature: 13:08 Referrals: ERIKA FOUNTAIN DO (PCP) Primary Care Physician [facility] (Family) Primary Care Physician Patient Instructions: Flu, Adult (DC) Add. Discharge Instructions: Plan: 1. Discharge home. Drink plenty of fluids to stay hydrated. 2. Stay home if you are still running fever, you will need to stay home until you are fever free. 3. Wash your hands frequently, disinfect surfaces at home. Try to isolate yourself from others in the house as much as you are able. 4. Clean areas that may have blood, stool, or body fluids on them. 5. Cover your mouth and nose when you cough or sneeze, throw away tissues, and wash hands immediately. 6. Return to ER if you develop: trouble breathing, persistent pain or pressure in the chest, new confusion, inability to wake or stay awake, pale, valerio, blue- colored skin, lips, or nail beds depending on skin tone. 7. May use Tylenol 1000mg every 8 hours or Ibuprofen 600mg every 6 hours as needed with food for comfort. 8. Return to ER for any other new, concerning, or worsening symptoms. All discharge instructions reviewed with patient and/or family. Voiced understanding. GAYATHRI ARIZA [employer] DRILL OPERATOR Aug 30, 2022 13:09
[2022-08-30] MEDS ORDERED: KETOROLAC 60 MG/2 ML VIAL IM ONE (13:15)
[2022-08-30 13:38] VITALS: BP 119/76
== END 2022-08-30 13:38 | disposition home or self-care (01) ==
LOC: EDUNIT# 11:07 → ER 11:09
DX: J11.1 Influenza due to unidentified influenza virus with other respiratory manifestations (principal); Z20.822 Contact with and (suspected) exposure to COVID-19; Z28.310 Unvaccinated for COVID-19
CPT/HCPCS: 87636; 99283